=== PATIENT | male | born 1980 | race Caucasian/White ===

== ENCOUNTER 2019-10-05 14:50 | Emergency (ER) | payer MEDICAID ==
[~2019-10-05] VITALS: Ht 172.7 cm; Wt 59.1 kg
[2019-10-05 15:07] VITALS: BP 118/85
[2019-10-05] MEDS ORDERED: ORPH100T2 PO (15:31)
[2019-10-05] MEDS ORDERED: NAPR-56 PO (15:31)
[2019-10-05] MEDS ORDERED: orphenadrine citrate 60mg/2ml inj. IM ONE (15:35)
[2019-10-05] MEDS ORDERED: HYDROcodone/acetaminophen 5mg/325mg tablet PO ONE (15:35)
[2019-10-05] MEDS ORDERED: ketorolac trometh inj. 60 MG/2 ML VIAL IM ONE (15:35)
== END 2019-10-05 16:06 | disposition home or self-care (01) ==
LOC: ER 14:51
DX: S39.012A Strain of muscle, fascia and tendon of lower back, initial encounter (principal); M62.830 Muscle spasm of back; G89.29 Other chronic pain; Z79.899 Other long term (current) drug therapy; X58.XXXA Exposure to other specified factors, initial encounter; Y93.89 Activity, other specified; Y92.89 Other specified places as the place of occurrence of the external cause; Y99.8 Other external cause status
CPT/HCPCS: 96372; 99284; J1885; J2360